=== PATIENT | male | born 1955 | race Caucasian/White ===

== ENCOUNTER → 2016-07-13 | Outpatient (CLI) | payer BC | END | disposition home or self-care (01) | LOC: C.CPL 10:23 | PROVIDERS: ATTEND Otolaryngology | DX: Z01.810 Encounter for preprocedural cardiovascular examination (principal) ==

== ENCOUNTER → 2016-08-05 | Day surgery (SDC) | payer BC ==
[2016-07-20 11:21] VITALS: Ht 180.3 cm; Wt 85.5 kg
--- NOTE | 2016-08-04 08:50 | History and Physical: Surg Cnt ---
History & Physical Date August 04, 2016. Chief Complaint pain on swallowing History of Present Illness The patient is a 61 year old male with complaints of odynophagia, globus, reflux , and pain; referred by Dr. Powers for lesion laryngeal surface of epiglottis Past Medical/Surgical History Medical Problems: (1) Carpal tunnel syndrome Additional History Hepatic Disease: No Endocrine Disorder: No Kidney Disease: No Hypertension: No Heart Disease: No Bleeding Tendencies: No Infectious Diseases: No Allergies Coded Allergies: No Known Allergies (Unverified , NONE, 07/20/16) Home Medications No Active Prescriptions or Reported Meds Physical Examination Skin: warm/dry, no rash Eyes: normal inspection, EOMI, sclerae normal ENT: normal ENT inspection, pharynx normal, + pertinent finding (lesion laryngeal surface of epiglottis) Head: normocephalic, atraumatic Neck: supple, no adenopathy, trachea midline Respiratory/Chest: lungs clear, normal breath sounds, no respiratory distress Cardiovascular: regular rate, rhythm, no edema, no murmur Abdomen / GI: normal bowel sounds, non tender Back: normal inspection Extremities: normal inspection, normal range of motion Neurologic/Psych: no motor/sensory deficits, alert, normal reflexes, oriented x 3 Diagnosis lesion laryngeal surface of epiglottis Plan of Treatment direct laryngoscopy with micro excision
[~2016-08-05] VITALS: Ht 180.3 cm; Wt 85.5 kg
[~2016-08-05] MED LIST: ATROPINE SULFATE 0.1 MG/ML 5ML SYR IV PRN; DEXAMETHASONE SOD INJ 4 MG/ML VIAL ONE; EpHEDrine SULFATE INJ 50 MG/ML AMP IV PRN; FENTANYL CITRATE INJ 50 MCG/1 ML 2 ML VIAL IV PRN; FENTANYL CITRATE INJ 50 MCG/1 ML 2 ML VIAL ONE; FLUMAZENIL 0.1 MG/1 ML 10 ML VIAL IV PRN; HYDROmorphone INJ 2 MG/ML SYR/VIAL IV PRN; HydrALAZINE HCL 20 MG/ML VIAL ONE; LABETALOL HCL IV 5 MG/ML 20ML IV PRN; LACTATED RINGER'S 1000ML 1,000 ML IV SCH; LIDOCAINE HCL 2% 2 ML VIAL (20MG/ML) ONE; MEPERIDINE HCL 25 MG/ML CARP IV PRN; MIDAZOLAM HCL 1 MG/ML 2ML VIAL ONE; NALOXONE HCL 0.4 MG/1 ML VIAL/CARP IV PRN; NURSING VERBAL MED ORDER ONE; ONDANSETRON INJ 2 MG/ML 2 ML VIAL IV PRN; ONDANSETRON INJ 2 MG/ML 2 ML VIAL ONE; OXYCODONE/ACETAMINOPHEN 5-325 TAB PO PRN; PHENYLEPHRINE 100MCG/ML 5ML SYR IV PRN; PROPOFOL IV EMULSION 10 MG/ML 20 ML VIAL IV ONE; ROCURONIUM BROMIDE 10 MG/ML 5 ML VIAL ONE; SODIUM CHLORIDE 0.9% 1000ML 1,000 ML IV SCH; SUCCINYLCHOLINE CHLORIDE 20 MG/ML 10 ML VIAL IV ONE
--- NOTE | 2016-08-05 13:18 | History & Physical Bridge Note ---
H&P Re-Evaluation Bridge Note: I have examined the patient, reviewed the History & Physical and in the interval since the performance of the History & Physical I have noted the following changes of clinical significance: No changes noted
--- NOTE | 2016-08-05 13:22 | Discharge Instructions-SurgCtr ---
Discharge Instructions Date of Service August 05, 2016. Visit Reason for Visit: Cyst Laryngeal Surface Of Epiglotis Discharge Discharge Diagnosis / Problem: same Discharge Goals Goal(s): Diagnostic testing Activity Recommendations Activity Limitations: resume your previous activity Anesthesia . Post Anesthesia Instructions: If you have had General Anesthesia or IV Sedation: * Do not drive today. * Resume driving when surgeon permits. * Do not make important decisions or sign legal documents today. * Call surgeon for: 1. Temperature elevations greater than 101 degrees F. 2. Uncontrollable pain. 3. Excessive bleeding. 4. Persistent nausea and vomiting. 5. Medication intolerance (nausea, vomiting or rash). * For nausea and vomiting use only clear liquids such as: tea, soda, bouillon until nausea subsides, then gradually increase diet as tolerated. * If you have any concerns or questions, call your surgeon's office. If physician is unavailable and it is an emergency, call 911 or go to the nearest emergency room. . Instructions / Follow-Up Instructions / Follow-Up avoid hot liquids, use ice chips to minimize swelling, rest voice x 48 hr Diet Recommendations Home Diet: resume previous diet Diet Texture: Mechanical Soft (ground) Pending Studies Studies pending at discharge: no Medical Emergencies . Who to Call and When: Medical Emergencies: If at any time you feel your situation is an emergency, please call 911 immediately. . Non-Emergent Contact Non-Emergency issues call your: Primary Care Provider . . "Provider Documentation" section prepared by Naila Dennison. . [place] Drug Monitoring Program Search Results: no issues identified
--- NOTE | 2016-08-05 14:33 | Anesthesia Progress Nt - [facility] ---
Anesthesia Post Op Note Date & Time August 05, 2016 at 14:34 Vital Signs Pain Intensity: 0 Vital Signs Past 12 Hours Date Time Temp Pulse Resp B/P Pulse Ox O2 Delivery O2 Flow Rate FiO2 08/05/16 14:23 61 10 100 08/05/16 14:23 62 10 08/05/16 14:20 158/96 08/05/16 14:18 65 6 08/05/16 14:18 64 6 100 08/05/16 14:15 157/103 08/05/16 14:13 68 6 157/108 99 08/05/16 14:13 36.2 76 20 157/108 98 Humidified Oxygen 6 Diffusion Mask 08/05/16 14:13 67 6 08/05/16 12:13 36.6 62 18 127/90 97 Room Air Notes Mental Status: alert / awake / arousable, participated in evaluation Pt Amnestic to Procedure: Yes Nausea / Vomiting: adequately controlled Pain: adequately controlled Airway Patency, RR, SpO2: stable & adequate BP & HR: stable & adequate Hydration State: stable & adequate Anesthetic Complications: no major complications apparent
[2016-08-05 15:09] VITALS: TEMP 36.8
[2016-08-05 15:24] VITALS: BP 135/88; PULSE 58; O2SAT 97
--- NOTE | 2016-08-05 16:40 | OPERATIVE REPORT ---
DATE OF OPERATION: 08/05/2016 PREOPERATIVE DIAGNOSIS: Cyst laryngeal surface of epiglottis. POSTOPERATIVE DIAGNOSES: Same plus a second cyst on the lingual surface of epiglottis. PROCEDURE: Direct laryngoscopy with suspension and microlaryngoscopy and excision of 2 cysts. SURGEON: Dr. Dennison. ANESTHESIA: General endotracheal. COMPLICATIONS: None. BLOOD LOSS: 10 mL COMPLICATIONS: A small laceration under the tongue from the laryngoscope HISTORY: A 61-year-old male who presented with globus sensation was referred by Dr. Powers who did upper GI endoscopy and saw a cyst on the laryngeal surface of the epiglottis. This was visualized by me and the patient requested excisional biopsy because a past history of smoking. DESCRIPTION OF PROCEDURE: The patient brought to the operating room and placed in supine position. General endotracheal anesthesia was induced, prepped, draped in usual sterile manner. The Dedo laryngoscope was used, the tip of the epiglottis was sharp and there was a cyst at the laryngeal surface, but then there was also another cyst on the lingual surface of epiglottis. The vallecula was otherwise free of lesions as was the piriform sinus areas. The endolarynx was inspected and noted to have mild edema but otherwise normal. Suspension microlaryngoscopy was performed exposing the cyst of the epiglottis on the laryngeal surface. This was excised using the upbiting cup forceps and various straight and upbiting scissors. Yellowish purulent material was expressed from the cyst during the excision. Hemostasis was controlled using topical cottonoids with epinephrine. Attention was turned to the lingual surface of the epiglottis where another cyst was noted; therefore, the cyst was excised using the cup forceps and upbiting scissors and sent to pathology separately from the first cyst. At the end of the procedure, it was noted that with a suspension microlaryngoscopy the tongue was pinched and had a small less than 1 cm laceration at the undersurface of the tongue. The patient tolerated the procedure well and was taken to recovery area in satisfactory condition. I attest to the content of the Intraoperative Record and any orders documented therein. Any exceptio ns are noted below.
== END | disposition home or self-care (01) ==
LOC: X.SURG 12:00
PROVIDERS: ATTEND Otolaryngology
DX: J38.7 Other diseases of larynx (principal)

== ENCOUNTER 2024-03-10 11:09 | Observation (INO) ==
--- NOTE | 2024-03-10 11:37 | Emergency Department Note ---
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 It comes and goes with exertion. Relieved by rest. Initially started 2 days ago when he was walking up steep incline. He had it yesterday with just a subtle incline and now today with just moving around. He describes it as a weakness feeling in his chest. It was initially on the right side and now is on the left side. He notes it is a discomfort but has difficulty describing it other than the weakness. No dysuria, urgency, or frequency. No other exacerbating or remitting factors. Per he is supposed to be on a NOAC but they stopped today due to his low platelets. He did get a transfusion several days ago. He also note new swelling of the bilateral lower extremities which are worse than usual. ADDITIONAL HISTORY OBTAINED: Per HPI Chronic Medical/Social Conditions Affecting Care: Per HPI PAST MEDICAL HISTORY:See Below PAST SURGICAL HISTORY:See Below FAMILY HISTORY:See Below SOCIAL HISTORY:See Below HOME MEDICATIONS:See Below ALLERGIES:See Below VITALS:See Below PHYSICAL EXAMINATION: GENERAL: Sitting up in bed, alert, well appearing, well nourished, no distress, non-toxic EYE EXAM: normal conjunctiva. OROPHARYNX: no exudate, no erythema, lips, buccal mucosa, and tongue normal and mucous membranes are moist NECK: supple, no nuchal rigidity, no adenopathy, non-tender LUNGS: Clear to auscultation. Normal chest wall mechanics HEART: no murmurs, S1 normal and S2 normal ABDOMEN: abdomen soft, non-tender, normo-active bowel sounds, no masses, no rebound or guarding. BACK: Back is symmetrical on inspection and there is no deformity, no midline tenderness, no CVA tenderness. SKIN: no rashes and no bruising UPPER EXTREMITIES: upper extremities are grossly normal. LOWER EXTREMITIES: No pitting edema. NEURO EXAM: Normal sensorium, cranial nerves II-XII grossly intact, normal speech, no gross weakness of arms, no gross weakness of legs. MEDICAL DECISION MAKING: Patient is a 68-year-old male who presents ER for the above-stated complaint. IV was established and blood work was obtained. Labs show a leukopenia at 1.8, anemia 8.5 and a thrombocytopenia at 40 which is actually improved from previous. Upon arrival he was given aspirin due to the chest pain. BMP with a slightly elevated chloride at 109. LFTs and bilirubin is unremarkable. Lipase was normal. Troponin was negative. EKG nondiagnostic. Chest x-ray was clean. No chest pain upon presentation. Patient was updated at bedside. He was discussed with hospitalist admitted for further workup. CT of the chest was negative for any PE. Consults/Care Managements Discussions: Per [facility] Triage Nursing notes reviewed. Limited review of prior medical records performed Vital Signs: reviewed and remarkable for no significant abnormalities Differential diagnosis: Cardiac ischemia, aortic dissection, pulmonary embolism, pneumothorax, pneumonia, pericarditis, myocarditis, esophageal rupture, GERD, cholecystitis, pancreatitis, musculoskeletal, as well as other pathologies. ER treatment provided: See below Diagnostics interpreted by me include EKG and cardiac monitoring as listed below: -Cardiac Monitoring: An order was placed for continuous cardiac monitoring. The monitor shows a rate of 70 with sinus rhythm. -ECG: Sinus rhythm rate of 62 Normal axis No PVCs QTc 420 -Laboratory studies:Interpreted by me as stated above in MDM and shown below. Imaging studies: Xrays: As interpreted by me: Portable AP upright 1 view of the chest shows no focal infiltrate CTs show: CTA of the chest showed no PEs Procedures:none Critical Care: None Past Med/Surg History Problem List (Updated 03/10/24 @ 17:06 by Musa Davis DO) Chest pain (Acute) Pancytopenia (Acute) Lymphoma (Acute) Chest pain Fracture of tooth enamel and dentin Encounter for pre-operative examination History of laryngoscopy DIRECT LARYNGOSCOPY, LARYNGEAL CYSTECTOMY=08/05/16= GRADE VIEW 3, HUSSEIN 2, ETT 6.5 AT [facility] History of knee surgery RIGHT Bimalleolar ankle fracture (Acute) Medical History History of COVID-19 06/2021, home test, not hosp; headaches, congestion>resolved. Fracture of right ankle hx-due to fall off roof Osteoarthritis Surgical History Hx of laparoscopy S/P tendon repair quadriceps tendon LT. H/O colonoscopy Hx of arthroscopy of right knee History of tonsillectomy 1990 History of vasectomy History of carpal tunnel release B/L History of ankle surgery RIGHT 2015 Social History (Updated 03/24/21 @ 16:16 by Ingrid Pineda RN) Smoking Status: Never smoker Tobacco Type: Cigarettes and Smokeless Tobacco (Dip or Chew) packs per day: 0.25; Second Hand Exposure: No; Do You Dip or Chew Tobacco: Yes (hx-quit 5 years ago); Hx Alcohol Use: No Hx Substance Use: No Preferred Language: Latvian Communication Ability: Effective Retail Customer Service Specialist Required: No Beliefs That Will Affect Care: None marital status: Current Living Situation: Spouse current occupational status: retired How many Children do You have: 3 Feels Safe at Home: Yes Diet: regular during the past year weight has: remained stable Assistive Devices: Glasses Allergies Allergies Allergy/AdvReac Type Severity Reaction Status Date / Time animal dander Allergy Verified 03/10/24 14:39 house dust mite Allergy Verified 03/10/24 14:39 No Known Drug Allergies Allergy Verified 03/08/24 09:30 Home Meds Home Medications Medication Instructions Recorded Confirmed acyclovir 400 mg tablet 400 mg PO BID 03/08/24 03/10/24 cholecalciferol (vitamin D3) 125 125 mcg PO DAILY 03/08/24 03/10/24 mcg (5,000 unit) tablet (Vitamin D3) levofloxacin 500 mg tablet 500 mg PO DAILY 03/08/24 03/10/24 multivitamin 1 tab PO DAILY 03/08/24 03/10/24 apixaban 2.5 mg tablet (Eliquis) 0 mg PO BID 03/10/24 03/10/24 docusate sodium 100 mg capsule 200 mg PO HS 03/10/24 03/10/24 (Colace) gabapentin 300 mg tablet,extended 300 mg PO HS 03/10/24 03/10/24 release 24 hr sennosides 8.6 mg tablet (Senokot) 8.6 mg PO QAM 03/10/24 03/10/24 Results & Data (ED) Vital Signs Vital Signs - 24 hr 03/10/24 11:17 03/10/24 11:31 03/10/24 11:52 Temperature 36.9 C Temperature Source Temporal Artery Scan Pulse Rate 67 63 Pulse Rate [Apical] Pulse Rate from SpO2 Sensor Respiratory Rate 18 Respiratory Effort / Characteristics Non-Labored Spontaneous Respiratory Depth Normal Blood Pressure 118/69 Blood Pressure [Right Arm] Blood Pressure Mean 85 Blood Pressure Mean [Right Arm] Blood Pressure Position Sitting Pulse Oximetry 97 96 Oxygen Delivery Method Room Air Room Air Sepsis Recent Fever Within 48 Hours No Sepsis New/Unexplained Change in Mental Status N/A Sepsis Action Taken by Nursing No Action Required 03/10/24 11:52 03/10/24 11:52 03/10/24 12:17 Temperature Temperature Source Pulse Rate 65 Pulse Rate [Apical] 70 57 L Pulse Rate from SpO2 Sensor Respiratory Rate 15 11 L 8 L Respiratory Effort / Characteristics Respiratory Depth Blood Pressure Blood Pressure [Right Arm] 115/72 88/58 L Blood Pressure Mean Blood Pressure Mean [Right Arm] 86 68 Blood Pressure Position Pulse Oximetry 97 96 98 Oxygen Delivery Method Room Air Room Air Room Air Sepsis Recent Fever Within 48 Hours Sepsis New/Unexplained Change in Mental Status Sepsis Action Taken by Nursing 03/10/24 12:39 03/10/24 13:00 03/10/24 14:06 Temperature Temperature Source Pulse Rate 59 L Pulse Rate [Apical] 61 Pulse Rate from SpO2 Sensor 59 L Respiratory Rate 17 26 H Respiratory Effort / Characteristics Respiratory Depth Blood Pressure 97/64 L Blood Pressure [Right Arm] 126/68 Blood Pressure Mean 70 Blood Pressure Mean [Right Arm] 87 Blood Pressure Position Pulse Oximetry 98 98 Oxygen Delivery Method Room Air Sepsis Recent Fever Within 48 Hours Sepsis New/Unexplained Change in Mental Status Sepsis Action Taken by Nursing 03/10/24 14:09 03/10/24 14:30 03/10/24 14:30 Temperature Temperature Source Pulse Rate 59 L Pulse Rate [Apical] Pulse Rate from SpO2 Sensor 60 Respiratory Rate 26 H Respiratory Effort / Characteristics Respiratory Depth Blood Pressure 126/68 115/69 115/69 Blood Pressure [Right Arm] Blood Pressure Mean 87 77 77 Blood Pressure Mean [Right Arm] Blood Pressure Position Pulse Oximetry 98 Oxygen Delivery Method Sepsis Recent Fever Within 48 Hours Sepsis New/Unexplained Change in Mental Status Sepsis Action Taken by Nursing 03/10/24 14:30 03/10/24 15:06 12/14/24 15:15 Temperature Temperature Source Pulse Rate 57 L 58 L 63 Pulse Rate [Apical] Pulse Rate from SpO2 Sensor 57 L 59 L 60 Respiratory Rate 14 19 15 Respiratory Effort / Characteristics Respiratory Depth Blood Pressure Blood Pressure [Right Arm] Blood Pressure Mean Blood Pressure Mean [Right Arm] Blood Pressure Position Pulse Oximetry 99 98 97 Oxygen Delivery Method Sepsis Recent Fever Within 48 Hours Sepsis New/Unexplained Change in Mental Status Sepsis Action Taken by Nursing 03/10/24 15:33 03/10/24 15:40 Temperature Temperature Source Pulse Rate 58 L 63 Pulse Rate [Apical] Pulse Rate from SpO2 Sensor 59 L Respiratory Rate 21 Respiratory Effort / Characteristics Respiratory Depth Blood Pressure 107/73 Blood Pressure [Right Arm] Blood Pressure Mean 84 Blood Pressure Mean [Right Arm] Blood Pressure Position Pulse Oximetry 98 Oxygen Delivery Method Sepsis Recent Fever Within 48 Hours Sepsis New/Unexplained Change in Mental Status Sepsis Action Taken by Nursing Laboratory Data 03/10/24 11:46 03/10/24 11:46 Lab Results 03/10/24 Range/Units 11:46 WBC 1.89 L (4.8-10.8) K/ul RBC 2.41 L (4.70-6.10) M/uL Hgb 8.5 L (14.0-18.0) g/dl Hct 24.1 L (42.0-52.0) % MCV 100.0 (80.0-100.0) fL MCH 35.3 H (25.0-34.0) pg MCHC 35.3 (32.0-36.0) g/dL RDW Std Deviation 60.2 H (36.4-46.3) fL RDW Coeff of Roula 16.2 H (11.5-14.5) % Plt Count 40 L (130-400) K/uL MPV 10.8 (9.4-12.4) fL Immature Gran % (Auto) 1.6 % Neut % (Auto) 53.9 % Lymph % (Auto) 14.3 % Stewart % (Auto) 25.4 % Eos % (Auto) 3.7 % Baso % (Auto) 1.1 % Neut # (Auto) 1.02 L (1.40-6.50) K/uL Lymph # (Auto) 0.27 L (1.20-3.40) K/uL Stewart # (Auto) 0.48 (0.11-0.59) K/uL Eos # (Auto) 0.07 (0.00-0.50) K/uL Baso # (Auto) 0.02 (0.00-0.20) K/uL Immature Gran # (Auto) 0.03 (0.01-0.20) K/uL Hyposegmented Neuts 1+ Polychromasia 1+ Tear Drop Cells 1+ Ovalocytes 1+ Sodium 138 (136-145) mmol/L Potassium 3.9 (3.5-5.1) mmol/L Chloride 109 H (98-107) mmol/L Carbon Dioxide 26 (21-32) mmol/L Anion Gap 3 (3-11) BUN 13 (6-23) mg/dl Creatinine 0.61 (0.6-1.4) mg/dl Est Cr Clr Drug Dosing 118.0 ml/min eGFR 103.98 BUN/Creatinine Ratio 21.3 H (10-20) Glucose 105 H (70-99(Fasting)) mg/dl Calcium 8.6 (8.6-10.3) mg/dl Total Bilirubin 0.6 (0.2-1.0) mg/dl AST 10 L (13-39) U/L ALT 8 (7-52) U/L Alkaline Phosphatase 60 (34-104) U/L Troponin I High Sens 8.9 (0-20) pg/ml Total Protein 5.2 L (6.0-8.3) gm/dl Albumin 3.5 (3.4-5.0) gm/dl Globulin 1.7 L (2.5-4.0) gm/dl Albumin/Globulin Ratio 2.1 H (0.9-2) Lipase 5 L (11-82) U/L Administered Medications Discontinued Medications Aspirin (Aspirin Chew 324 Mg) 324 mg PO NOW STA Stop: 03/10/24 11:42 Last Admin: 03/10/24 11:50 Dose: 324 mg Documented By: DONTRELL Sodium Chloride (Nss) 1,000 mls @ 999 mls/hr IV .Q1H1M ONE Stop: 03/10/24 13:45 Last Infusion: 03/10/24 15:55 Dose: Infused Documented By: Admin: 03/10/24 14:09 Dose: 999 mls/hr Documented By: AVM Ioversol (Optiray 320 125ml) 65 ml IV ONCE ONE Stop: 03/10/24 13:46 Last Admin: 03/10/24 13:45 Dose: 65 ml Documented By: JOSE MANUEL Nitroglycerin (Nitroglycerin Sl 0.4 Mg/Tab Tab) 0.4 mg SL NOW STA Stop: 03/10/24 11:42 Last Admin: 03/10/24 11:50 Dose: 0.4 mg Documented By: DONTRELL Imaging Data Radiologist's Impression: Chest X-Ray 03/10/24 11:28 XR chest 1V portable CLINICAL HISTORY: Chest pain, nonspecific COMPARISON STUDY: None. FINDINGS: Right internal jugular [id number] is in place. Lung volumes are normal. Lungs are clear. There is no pneumothorax or pleural effusion. Cardiac size is normal. Mediastinal contours are normal. There is no evidence for pulmonary edema. IMPRESSION: No acute cardiopulmonary findings. ACT 112: Negative or not required by law. Electronically signed by: Triston Dao M.D. 03/10/2024 1:21 PM Chest CTA 03/10/24 12:45 EXAM: CT Angiography Chest With Intravenous Contrast INDICATION: Chest pain on exertion. B-cell lymphoma. TECHNIQUE: Axial computed tomographic angiography images of the chest with intravenous contrast. Sagittal and coronal reformatted images were created and reviewed. This CT exam was performed using one or more of the following dose reduction techniques: automated exposure control, adjustment of the mA and/or kV according to patient size, and/or use of iterative reconstruction technique. MIP reconstructed images were created and reviewed. CONTRAST: 65ml of Optiray 320 was administered intravenously. COMPARISON: Limited comparison to upper abdominal CT performed during lymph node biopsy. FINDINGS: Pulmonary arteries: No abnormality noted. No pulmonary embolism. Aorta: No acute change noted. No thoracic aortic aneurysm or dissection. Lungs and pleural spaces: Coarse interstitial markings likely scarring. There is a 5 mm oval noncalcified pleural-based nodule in the left lower lobe at the level of the eighth rib. There are 2 and 3 mm noncalcified right middle lobe pulmonary nodules. No bronchiectasis or honeycombing. No pleural effusion or pneumothorax. Heart: Cardiomegaly. No pericardial effusion. No evidence of RV dysfunction. Bones/joints: Degenerative changes noted throughout the spine. No acute osseous abnormality seen. Soft tissues: No abnormality noted. Lymph nodes: No abnormality noted. No enlarged lymph nodes. Spleen: Visualized portion of the mass in the spleen appears smaller. IMPRESSION: 1. No pulmonary embolus noted. 2. Nonspecific right middle lobe pulmonary nodules. Fleischner Society Guidelines (MacMahon, et al. Radiology 2017; 284(1):228-43) suggest that no follow-up is necessary for patients with a low or high risk of malignancy. Pleural-based nodule left lower lobe requires no further assessment. ACT 112: Negative or not required by law. Electronically signed by Luanne Shetty 03-10-2024 2:12 PM Discharge Plan Visit Data Chief Complaint: Cardiac Assessment Stated Complaint: HAVING CHEMO, EDEMA IN ANKLES, CHEST PAINS ED Provider: Musa Davis Discharge Problem: Chest pain, Pancytopenia, Lymphoma Forms Stand Alone Forms: [facility] Prescriptions Prescriptions: No Action sennosides [Senokot] 8.6 mg Tablet 8.6 mg PO QAM docusate sodium [Colace] 100 mg Capsule 200 mg PO HS gabapentin 300 mg Tablet Extended Release 24 Hr 300 mg PO HS Eliquis 2.5 mg tablet 0 mg PO BID Rx Instructions: 03/07/24 - Pt's platelet count down to 9, was told to hold medication until it is up to 50 multivitamin Tablet 1 tab PO DAILY acyclovir 400 mg Tablet 400 mg PO BID levofloxacin 500 mg Tablet 500 mg PO DAILY cholecalciferol (vitamin D3) [Vitamin D3] 125 mcg (5,000 unit) Tablet 125 mcg PO DAILY Referrals Referrals: Shelby Burgess DO [Primary Care Provider] - Discharge Problem: Chest pain Qualifiers: Chest pain type: unspecified Qualified Code(s): R07.9 - Chest pain, unspecified Lymphoma Qualifiers: Lymphoma type: unspecified type
[2024-03-10] MEDS: ASPIRIN CHEW 324 MG PO STA (11:50)
[2024-03-10] MEDS: NITROGLYCERIN SL 0.4 MG/TAB TAB SL STA (11:50)
[2024-03-10 12:18] LABS: Albumin Globulin Ratio 2.1 (0.9-2); Albumin Level 3.5 gm/dl (3.4-5.0); BUN Creatinine Ratio 21.3 (10-20); Bilirubin,Total 0.6 mg/dl (0.2-1.0); Calcium 8.6 mg/dl (8.6-10.3); Globulin 1.7 gm/dl (2.5-4.0); Potassium 3.9 mmol/L (3.5-5.1); Total Protein 5.2 gm/dl (6.0-8.3)
[2024-03-10 12:24] LABS: Troponin I High Sensitivity 8.9 pg/ml (0-20)
[2024-03-10 13:03] LABS: Hematocrit (blood only) 24.1 % (42.0-52.0); Hemoglobin 8.5 g/dl (14.0-18.0); Mean Corpuscular Hemoglobin 35.3 pg (25.0-34.0); Mean Corpuscular Hgb Conc 35.3 g/dL (32.0-36.0); Mean Platelet Volume 10.8 fL (9.4-12.4); Platelet Count 40 K/uL (130-400); RDW Coefficient of Variation 16.2 % (11.5-14.5); RDW Standard Deviation 60.2 fL (36.4-46.3); Red Blood Count 2.41 M/uL (4.70-6.10); White Blood Count 1.89 K/ul (4.8-10.8)
[2024-03-10 13:07] LABS: Basophils # (auto) 0.02 K/uL (0.00-0.20); Basophils % (auto) 1.1 %; Eosinophils # (auto) 0.07 K/uL (0.00-0.50); Eosinophils % (auto) 3.7 %; Immature Granulocytes # (auto) 0.03 K/uL (0.01-0.20); Immature Granulocytes % (auto) 1.6 %; Lymphocytes # (auto) 0.27 K/uL (1.20-3.40); Lymphocytes % (auto) 14.3 %; Monocytes # (auto) 0.48 K/uL (0.11-0.59); Monocytes % (auto) 25.4 %; Neutrophils # (auto) 1.02 K/uL (1.40-6.50); Neutrophils % (auto) 53.9 %; Ovalocytes 1+; Polychromasia 1+; Tear Drop Cells 1+
--- NOTE | 2024-03-10 13:22 | XRay Report ---
XR chest 1V portable CLINICAL HISTORY: Chest pain, nonspecific COMPARISON STUDY: None. FINDINGS: Right internal jugular Esrsya-t-Bswe is in place. Lung volumes are normal. Lungs are clear. There is no pneumothorax or pleural effusion. Cardiac size is normal. Mediastinal contours are bailey l. There is no evidence for pulmonary edema. IMPRESSION: No acute cardiopulmonary findings. ACT 112: Negative or not required by law. Electronically signed by: Triston Dao M.D. 03/10/2024 1:21 PM
[2024-03-10] MEDS: OPTIRAY 320 125ml IV ONE (13:45)
[2024-03-10] MEDS: SODIUM CHLORIDE 0.9% 1,000 ML IV ONE (14:09)
--- NOTE | 2024-03-10 14:13 | CT Scan Report ---
EXAM: CT Angiography Chest With Intravenous Contrast INDICATION: Chest pain on exertion. B-cell lymphoma. TECHNIQUE: Axial computed tomographic angiography images of the chest with intravenous contrast. Sagittal and coronal reformatted images were created and reviewed. This CT exam was performed using one or more of the following dose reduction techniques: automated exposure control, adjustment of the mA and/or kV according to patient size, and/or use of iterative reconstruction technique. MIP reconstructed images were created and reviewed. CONTRAST: 65ml of Optiray 320 was administered intravenously. COMPARISON: Limited comparison to upper abdominal CT performed during lymph node biopsy. FINDINGS: Pulmonary arteries: No abnormality noted. No pulmonary embolism. Aorta: No acute change noted. No thoracic aortic aneurysm or dissection. Lungs and pleural spaces: Coarse interstitial markings likely scarring. There is a 5 mm oval noncalcified pleural-based nodule in the left lower lobe at the level of the eighth rib. There are 2 and 3 mm noncalcified right middle lobe pulmonary nodules. No bronchiectasis or honeycombing. No pleural effusion or pneumothorax. Heart: Cardiomegaly. No pericardial effusion. No evidence of RV dysfunction. Bones/joints: Degenerative changes noted throughout the spine. No acute osseous abnormality seen. Soft tissues: No abnormality noted. Lymph nodes: No abnormality noted. No enlarged lymph nodes. Spleen: Visualized portion of the mass in the spleen appears smaller. IMPRESSION: 1. No pulmonary embolus noted. 2. Nonspecific right middle lobe pulmonary nodules. Fleischner Society Guidelines (MacMahon, et al. Radiology 2017; 284(1):228-43) suggest that no follow-up is necessary for patients with a low or high risk of malignancy. Pleural-based nodule left lower lobe requires no further assessment. ACT 112: Negative or not required by law. Electronically signed by Luanne Shetty 03-10-2024 2:12 PM
[2024-03-10] MEDS ORDERED: ONDANSETRON INJ 2 MG/ML 2 ML VIAL IV PRN (15:58)
[2024-03-10] MEDS ORDERED: ACETAMINOPHEN 325 MG TAB PO PRN (15:58)
[2024-03-10] MEDS ORDERED: POLYETHYLENE (MIRALAX) 17 GM PACK PO PRN (15:58)
--- NOTE | 2024-03-10 16:22 | History & Physical Report ---
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 Edwards local oncologist, on apixaban as part of clinical trial at [facility] which was stopped recently for thrombocytopenia requiring platelet transfusion 2 days ago presents with left-sided chest pain yesterday #Chest pain Admit to telemetry EKG with no ischemic changes, initial troponin negative CTA shows no evidence of PE Serial troponin every 6 hours x 2 Check 2D echo Check nuclear medicine stress test Patient received aspirin 324 mg in ED Hold off on aspirin due to thrombocytopenia requiring platelet transfusion Check lipid panel in a.m. Check A1c in a.m. #Diffuse large cell type B lymphoma #Pancytopenia #Right pulmonary nodules Patient under the care of Dr. Edwards oncologist locally He has finished 6 cycles of chemotherapy at [facility] in [facility] on February 29, 2024 His oncologist at [facility] is Dr. Gerald Weber Patient is in a clinical trial and he is not aware if he is getting placebo or treatment via pill He was on apixaban as part of the clinical trial (not for PE or A-fib) which had to be stopped by his oncology team due to thrombocytopenia requiring platelet transfusion 2 days ago Neutropenic precautions Monitor CBC daily Continue acyclovir and Levaquin for prophylaxis CTA showed right middle lobe pulmonary nodules 2 mm and 3 mm in size: Patient advised to follow-up with oncology as outpatient regarding this CODE STATUS: Discussed with patient, full code DVT prophylaxis: Bilateral SCDs, patient is ambulatory. 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 Edwards local oncologist, on apixaban as part of clinical trial at [facility] which was stopped recently for thrombocytopenia requiring platelet transfusion 2 days ago presents with left-sided chest pain yesterday Patient states she started with right-sided chest pain 3 days ago while he was trying to climb up a hill. It resolved on rest. No associated shortness of breath. Yesterday patient was out in nature and experienced left-sided chest pain, no radiation, no shortness of breath, no nausea and resolved on its own. Patient's was concerned and hence brought him to the ED today. Patient states he has not had any chest pain today. Denies any fever, chills, cough, shortness of breath, nausea, vomiting, diarrhea, abdominal pain. He tends to get constipated and takes senna and Colace for it. He has intermittent dizziness since he has started chemotherapy. Patient states as part of his clinical trial through [facility], he is also getting a pill and he is not sure if its treatment or placebo In ED, patient had chest x-ray which was negative, CTA which was negative for PE but showed 2 small right middle lobe pulmonary nodules. He had an EKG done which showed normal sinus rhythm at 62 bpm with QTc of 420 and no change from previous EKG from March 2018. Patient was given sublingual nitro even though he did not have any chest pain in ED. He was also given 1 L of normal saline and aspirin 324 mg in the ED. Hospitalist service was called for admission Social history: Patient lives with his . He is independent of ADLs. He drives. Denies tobacco use. He used to drink 2-3 beers a day and has had no alcohol since October 2023 since his diagnosis of lymphoma. He is retired Family history: Patient states his mother at the age of 99 from old age. She had a murmur. Patient states that his father at the age of 94 from congestive heart failure Allergies Allergy/AdvReac Type Severity Reaction Status Date / Time animal dander Allergy Verified 03/10/24 14:39 house dust mite Allergy Verified 03/10/24 14:39 No Known Drug Allergies Allergy Verified 03/08/24 09:30 Home Medications Medication Instructions Recorded Confirmed Type acyclovir 400 mg tablet 400 mg PO BID 03/08/24 03/10/24 History cholecalciferol (vitamin D3) 125 125 mcg PO DAILY 03/08/24 03/10/24 History mcg (5,000 unit) tablet (Vitamin D3) levofloxacin 500 mg tablet 500 mg PO DAILY 03/08/24 03/10/24 History multivitamin 1 tab PO DAILY 03/08/24 03/10/24 History apixaban 2.5 mg tablet (Eliquis) 0 mg PO BID 03/10/24 03/10/24 History docusate sodium 100 mg capsule 200 mg PO HS 03/10/24 03/10/24 History (Colace) gabapentin 300 mg tablet,extended 300 mg PO HS 03/10/24 03/10/24 History release 24 hr sennosides 8.6 mg tablet (Senokot) 8.6 mg PO QAM 03/10/24 03/10/24 History Past Med/Surg History Problem List (Updated 03/10/24 @ 16:15 by Amaury Brooks MD) Pancytopenia Lymphoma Chest pain Fracture of tooth enamel and dentin Encounter for pre-operative examination History of laryngoscopy DIRECT LARYNGOSCOPY, LARYNGEAL CYSTECTOMY=08/05/16= GRADE VIEW 3, HUSSEIN 2, ETT 6.5 AT [facility] History of knee surgery RIGHT Bimalleolar ankle fracture (Acute) Medical History History of COVID-19 06/2021, home test, not hosp; headaches, congestion>resolved. Fracture of right ankle hx-due to fall off roof Osteoarthritis Surgical History Hx of laparoscopy S/P tendon repair quadriceps tendon LT. H/O colonoscopy Hx of arthroscopy of right knee History of tonsillectomy 1990 History of vasectomy History of carpal tunnel release B/L History of ankle surgery RIGHT 2014 Social History (Updated 03/24/21 @ 16:16 by Ingrid Pineda RN) Smoking Status: Never smoker Tobacco Type: Cigarettes and Smokeless Tobacco (Dip or Chew) packs per day: 0.25; Second Hand Exposure: No; Do You Dip or Chew Tobacco: Yes (hx-quit 5 years ago); Hx Alcohol Use: No Hx Substance Use: No Preferred Language: Afghan Communication Ability: Effective Floral Designer Required: No Beliefs That Will Affect Care: None marital status: Current Living Situation: Spouse current occupational status: retired How many Children do You have: 3 Feels Safe at Home: Yes Diet: regular during the past year weight has: remained stable Assistive Devices: Glasses Review of Systems Review of Systems: All 12 systems have been reviewed and are negative or listed in HPI Physical Exam Physical Exam: General: No acute distress Psych: Awake and alert, oriented to place person and time HEENT: Anicteric sclera, moist oral mucosa CVS: Regular rate and rhythm, right-sided Chemo-Port noted Lungs: Bilateral air entry, no wheezing noted Abdomen: Soft, nontender, no rebound, no guarding Ext: Trace lower extremity edema, no calf tenderness Neuro: No focal motor deficits noted, cranial nerves II to XII are grossly intact Results & Data Results & Data Vital Signs (Past 12 Hours) Vital Signs Temp Pulse Pulse Resp BP BP Pulse Ox 03/10/24 15:40 63 03/10/24 15:33 58 L 21 107/73 98 03/10/24 15:15 63 15 97 03/10/24 15:06 58 L 19 98 03/10/24 14:30 57 L 14 99 03/10/24 14:30 115/69 03/10/24 14:30 115/69 03/10/24 14:09 59 L 26 H 126/68 98 03/10/24 14:06 61 26 H 126/68 98 03/10/24 13:00 97/64 L 03/10/24 12:39 59 L 17 98 03/10/24 12:17 57 L 8 L 88/58 L 98 03/10/24 11:52 65 11 L 96 03/10/24 11:52 70 15 115/72 97 03/10/24 11:52 96 03/10/24 11:31 63 03/10/24 11:17 36.9 C 67 18 118/69 97 O2 Del Method 03/10/24 15:40 03/10/24 15:33 03/10/24 15:15 03/10/24 15:06 03/10/24 14:30 03/10/24 14:30 03/10/24 14:30 03/10/24 14:09 03/10/24 14:06 Room Air 03/10/24 13:00 03/10/24 12:39 03/10/24 12:17 Room Air 03/10/24 11:52 Room Air 03/10/24 11:52 Room Air 03/10/24 11:52 Room Air 03/10/24 11:31 03/10/24 11:17 Room Air Laboratory Results Laboratory Results - last 24 hr 03/10/24 11:46 WBC 1.89 L RBC 2.41 L Hgb 8.5 L Hct 24.1 L MCV 100.0 MCH 35.3 H MCHC 35.3 RDW Std Deviation 60.2 H RDW Coeff of Roula 16.2 H Plt Count 40 L MPV 10.8 Immature Gran % (Auto) 1.6 Neut % (Auto) 53.9 Lymph % (Auto) 14.3 Butler % (Auto) 25.4 Eos % (Auto) 3.7 Baso % (Auto) 1.1 Neut # (Auto) 1.02 L Lymph # (Auto) 0.27 L Butler # (Auto) 0.48 Eos # (Auto) 0.07 Baso # (Auto) 0.02 Immature Gran # (Auto) 0.03 Hyposegmented Neuts 1+ Polychromasia 1+ Tear Drop Cells 1+ Ovalocytes 1+ Sodium 138 Potassium 3.9 Chloride 109 H Carbon Dioxide 26 Anion Gap 3 BUN 13 Creatinine 0.61 Est Cr Clr Drug Dosing 118.0 eGFR 103.98 BUN/Creatinine Ratio 21.3 H Glucose 105 H Calcium 8.6 Total Bilirubin 0.6 AST 10 L ALT 8 Alkaline Phosphatase 60 Troponin I High Sens 8.9 Total Protein 5.2 L Albumin 3.5 Globulin 1.7 L Albumin/Globulin Ratio 2.1 H Lipase 5 L Diagnostic Findings Chest X-Ray 03/10/24 11:28 XR chest 1V portable CLINICAL HISTORY: Chest pain, nonspecific COMPARISON STUDY: None. FINDINGS: Right internal jugular [id number] is in place. Lung volumes are normal. Lungs are clear. There is no pneumothorax or pleural effusion. Cardiac size is normal. Mediastinal contours are normal. There is no evidence for pulmonary edema. IMPRESSION: No acute cardiopulmonary findings. ACT 112: Negative or not required by law. Electronically signed by: Triston Dao M.D. 03/10/2024 1:21 PM Chest CTA 03/10/24 12:45 EXAM: CT Angiography Chest With Intravenous Contrast INDICATION: Chest pain on exertion. B-cell lymphoma. TECHNIQUE: Axial computed tomographic angiography images of the chest with intravenous contrast. Sagittal and coronal reformatted images were created and reviewed. This CT exam was performed using one or more of the following dose reduction techniques: automated exposure control, adjustment of the mA and/or kV according to patient size, and/or use of iterative reconstruction technique. MIP reconstructed images were created and reviewed. CONTRAST: 65ml of Optiray 320 was administered intravenously. COMPARISON: Limited comparison to upper abdominal CT performed during lymph node biopsy. FINDINGS: Pulmonary arteries: No abnormality noted. No pulmonary embolism. Aorta: No acute change noted. No thoracic aortic aneurysm or dissection. Lungs and pleural spaces: Coarse interstitial markings likely scarring. There is a 5 mm oval noncalcified pleural-based nodule in the left lower lobe at the level of the eighth rib. There are 2 and 3 mm noncalcified right middle lobe pulmonary nodules. No bronchiectasis or honeycombing. No pleural effusion or pneumothorax. Heart: Cardiomegaly. No pericardial effusion. No evidence of RV dysfunction. Bones/joints: Degenerative changes noted throughout the spine. No acute osseous abnormality seen. Soft tissues: No abnormality noted. Lymph nodes: No abnormality noted. No enlarged lymph nodes. Spleen: Visualized portion of the mass in the spleen appears smaller. IMPRESSION: 1. No pulmonary embolus noted. 2. Nonspecific right middle lobe pulmonary nodules. Fleischner Society Guidelines (MacMahon, et al. Radiology 2017; 284(1):228-43) suggest that no follow-up is necessary for patients with a low or high risk of malignancy. Pleural-based nodule left lower lobe requires no further assessment. ACT 112: Negative or not required by law. Electronically signed by Luanne Shetty 03-10-2024 2:12 PM ECG Additional Comments: Reviewed: Normal sinus rhythm at 62 bpm, QTc is 420, no change from EKG from March 2018 PG Care Time/CCT Total # of Minutes Spent Total Time Spent with Patient: Total time spent is greater than 50% in coordination of care (as documented) at patient's floor/unit and/or counseling patient: Coding Level of Care Code 85256 INT INP/OBS CARE 3/75MIN Diagnoses Chest pain R07.9 Lymphoma C85.90 Pancytopenia D61.818
[2024-03-10] MEDS ORDERED: SENNA 8.6 MG TAB PO SCH (21:00)
[2024-03-10] MEDS: DOCUSATE SODIUM 100 MG CAP PO SCH (21:16)
[2024-03-10] MEDS: ACYCLOVIR 400 MG TAB PO SCH (21:16)
[2024-03-10] MEDS: GABAPENTIN 300 MG CAP PO SCH (21:17)
[2024-03-11 05:27] LABS: Albumin Globulin Ratio 1.9 (0.9-2); BUN Creatinine Ratio 20.3 (10-20); Bilirubin,Total 0.4 mg/dl (0.2-1.0); Calcium 8.3 mg/dl (8.6-10.3); Chol HDL Ratio 2.2 (0-5); Creatinine Clr Calc Pharmacy 104.3 ml/min; Globulin 1.6 gm/dl (2.5-4.0); Magnesium 1.8 mg/dl (1.7-2.4); Potassium 4.6 mmol/L (3.5-5.1); Total Protein 4.6 gm/dl (6.0-8.3)
[2024-03-11 06:20] LABS: Hemoglobin 7.5 g/dl (14.0-18.0); Mean Corpuscular Hemoglobin 34.7 pg (25.0-34.0); Mean Corpuscular Hgb Conc 34.1 g/dL (32.0-36.0); Mean Corpuscular Volume 101.9 fL (80.0-100.0); Mean Platelet Volume 10.8 fL (9.4-12.4); Platelet Count 50 K/uL (130-400); RDW Coefficient of Variation 16.7 % (11.5-14.5); RDW Standard Deviation 62.5 fL (36.4-46.3); Red Blood Count 2.16 M/uL (4.70-6.10); White Blood Count 1.72 K/ul (4.8-10.8)
[2024-03-11 06:35] LABS: Basophils # (auto) 0.03 K/uL (0.00-0.20); Basophils % (auto) 1.7 %; Dohle Bodies 1+; Eosinophils % (auto) 5.8 %; Immature Granulocytes # (auto) 0.13 K/uL (0.01-0.20); Immature Granulocytes % (auto) 7.6 %; Lymphocytes # (auto) 0.27 K/uL (1.20-3.40); Lymphocytes % (auto) 15.7 %; Monocytes # (auto) 0.41 K/uL (0.11-0.59); Monocytes % (auto) 23.8 %; Neutrophils # (auto) 0.78 K/uL (1.40-6.50); Neutrophils % (auto) 45.4 %; Toxic Granulation 1+
[2024-03-11 07:30] LABS: Estimated Average Glucose 108 mg/dl; Hemoglobin A1C 5.4 % (4.5-5.6)
[2024-03-11 08:06] VITALS: TEMP 98.1
[2024-03-11] MEDS: CHOLECALCIFEROL 125 MCG (5,000 UNITS) TAB PO SCH (10:15)
[2024-03-11] MEDS: MULTIVITAMIN TAB PO SCH (10:15)
[2024-03-11] MEDS: levoFLOXacin 500 MG TAB PO SCH (10:15)
[2024-03-11] MEDS: SENNA 8.6 MG TAB PO SCH (10:17)
[2024-03-11 12:12] VITALS: BP 100/64; PULSE 61; RESP 20; O2SAT 96
--- NOTE | 2024-03-11 13:04 | XCELERA ---
[id number]
--- NOTE | 2024-03-11 14:15 | Discharge Summary ---
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 Edwards local oncologist, on apixaban as part of clinical trial at [facility] which was stopped recently for thrombocytopenia requiring platelet transfusion 2 days ago presents with left-sided chest pain yesterday #Chest pain Telemetry monitoring did not show any evidence of arrhythmia EKG with no ischemic changes, troponin negative x 3 CTA shows no evidence of PE 2D echo shows normal left ventricular size and systolic function, EF of 65 to 70%, no regional wall motion abnormalities. Moderate concentric left ventricular hypertrophy. Probable PFO with [id number] interatrial shunt. Type I diastolic dysfunction. Trace aortic regurgitation A1c is 5.4 Triglycerides of 54 HDL 52 Cholesterol 112 LDL 49 VLDL 11 Patient advised to get complete cardiac workup with a stress test which could not be done till tomorrow: Patient decided he does not want to stay to get stress test. He is currently chest pain-free and is ambulating without any issues. He is concerned about him being neutropenic and would prefer to do this as outpatient. Patient's has space sciences director Dr. Beltran in mind and she has been provided with information for Dr. Beltran to call and make an appointment to schedule outpatient appointment and discuss further cardiac testing. #Diffuse large B-cell lymphoma #Pancytopenia #Right pulmonary nodules Patient under the care of Dr. Edwards oncologist locally He has finished 6 cycles of chemotherapy at [facility] in [facility] on February 29, 2024 His oncologist at [facility] is Dr. Gerald Weber Patient is in a clinical trial and he is not aware if he is getting placebo or treatment via pill He was on apixaban as part of the clinical trial (not for PE or A-fib) which had to be stopped by his oncology team due to thrombocytopenia requiring platelet transfusion 2 days ago Neutropenic precautions Continue acyclovir and Levaquin for prophylaxis CTA showed right middle lobe pulmonary nodules 2 mm and 3 mm in size: Patient advised to follow-up with oncology as outpatient regarding this Patient's platelet counts have improved. He is scheduled to have repeat platelet count done tomorrow as part of his clinical trial. I have asked him to hold apixaban for now which was advised given to him by [facility] and he will speak with [facility] clinical trial investigators regarding resuming apixaban based on platelet count results tomorrow. Patient also advised to follow up outpatient with his local oncologist Dr. Edwards Patient seen and examined. I have gone over the discharge care plan, medications and follow-up with the patient and his and who is at the bedside in great detail and answered all her questions. 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 Edwards local oncologist, on apixaban as part of clinical trial at [facility] which was stopped recently for thrombocytopenia requiring platelet transfusion 2 days ago presents with left-sided chest pain yesterday Patient states she started with right-sided chest pain 3 days ago while he was trying to climb up a hill. It resolved on rest. No associated shortness of breath. Yesterday patient was out in nature and experienced left-sided chest pain, no radiation, no shortness of breath, no nausea and resolved on its own. Patient's was concerned and hence brought him to the ED today. Patient states he has not had any chest pain today. Denies any fever, chills, cough, shortness of breath, nausea, vomiting, diarrhea, abdominal pain. He tends to get constipated and takes senna and Colace for it. He has intermittent dizziness since he has started chemotherapy. Patient states as part of his clinical trial through [facility], he is also getting a pill and he is not sure if its treatment or placebo In ED, patient had chest x-ray which was negative, CTA which was negative for PE but showed 2 small right middle lobe pulmonary nodules. He had an EKG done which showed normal sinus rhythm at 62 bpm with QTc of 420 and no change from previous EKG from March 2018. Patient was given sublingual nitro even though he did not have any chest pain in ED. He was also given 1 L of normal saline and aspirin 324 mg in the ED. Hospitalist service was called for admission Social history: Patient lives with his . He is independent of ADLs. He drives. Denies tobacco use. He used to drink 2-3 beers a day and has had no alcohol since October 2023 since his diagnosis of lymphoma. He is retired Family history: Patient states his mother at the age of 99 from old age. She had a murmur. Patient states that his father at the age of 94 from congestive heart failure Discharge Exam General: No acute distress Psych: Awake and alert, oriented to place person and time HEENT: Anicteric sclera, moist oral mucosa CVS: Regular rate and rhythm, right-sided Chemo-Port noted Lungs: Bilateral air entry, no wheezing noted Abdomen: Soft, nontender, no rebound, no guarding Ext: Trace lower extremity edema, no calf tenderness Neuro: No focal motor deficits noted, cranial nerves II to XII are grossly intact Discharge Plan Discharge Items Patient Disposition: Home - Self-Care Reason For Visit: CHEST PAIN Discharge Diagnosis: #Chest pain: Resolved #Diffuse large B cell lymphoma #Pancytopenia #Right pulmonary nodules Activity: Resume your previous activity Non-emergency contact: Primary Care Provider Call non-emergency contact if: you have any medication questions, your symptoms worsen and you have a fever Follow-up/Referrals: Misha Beltran MD [Physician] - Evonne Edwards MD [Physician] - Shelby Burgess DO [Primary Care Provider] - Diet: Heart Healthy Addtl Attending Provider Instructions: DISCHARGE INSTRUCTION TO PATIENT/FAMILY: Follow-up with your primary care provider within 1 week regarding: Posthospital discharge, medication review, medication refills and follow-up on all your medical problems Please take all your discharge medications, discharge information and discharge instructions to all your doctors appointments. Avoid all NSAIDs including ibuprofen, Motrin, Advil, Aleve, naproxen, meloxicam, Toradol, diclofenac You are scheduled for blood test tomorrow through [facility] to check your platelet count: Please hold apixaban until platelet count has been checked and speak with [facility] regarding resuming apixaban Labs through PCP in 1 week: CBC, CMP, MG, VITAMIN D You were admitted for chest pain. EKG did not show any evidence of abnormality. Your cardiac enzymes were negative x 3. Please follow-up with cardiology (Dr. Beltran) outpatient to schedule a stress test since you did not want to stay in the hospital to get a stress test. Follow-up with your local oncologist Dr. Edwards in 1 to 2 weeks time Here is the report of the CT angiography of the chest with IV contrast done on 03/10/2024: Please speak with [facility] regarding pulmonary nodules noted on CT scan FINDINGS: Pulmonary arteries: No abnormality noted. No pulmonary embolism. Aorta: No acute change noted. No thoracic aortic aneurysm or dissection. Lungs and pleural spaces: Coarse interstitial markings likely scarring. There is a 5 mm oval noncalcified pleural-based nodule in the left lower lobe at the level of the eighth rib. There are 2 and 3 mm noncalcified right middle lobe pulmonary nodules. No bronchiectasis or honeycombing. No pleural effusion or pneumothorax. Heart: Cardiomegaly. No pericardial effusion. No evidence of RV dysfunction. Bones/joints: Degenerative changes noted throughout the spine. No acute osseous abnormality seen. Soft tissues: No abnormality noted. Lymph nodes: No abnormality noted. No enlarged lymph nodes. Spleen: Visualized portion of the mass in the spleen appears smaller. IMPRESSION: 1. No pulmonary embolus noted. 2. Nonspecific right middle lobe pulmonary nodules. Fleischner Society Guidelines (MacMahon, et al. Radiology 2017; 284(1):228-43) suggest that no follow-up is necessary for patients with a low or high risk of malignancy. Pleural-based nodule left lower lobe requires no further assessment. Echocardiogram report from 03/11/2024 shows the following: Normal left ventricular size and systolic function, ejection fraction 65 to 70%. No regional wall motion abnormalities. Moderate concentric left ventricular hypertrophy. Mild left atrial dilation. Trace aortic regurgitation. Borderline dilated ascending aorta at 4.2 cm. Probable PFO with [id number] interatrial shunt. Normal estimated right ventricular systolic pressure. Type I diastolic dysfunction. Pending Studies at Discharge: No Stand-Alone Forms: My Involver, Smoking Cessation Medications and DC Order Prescriptions: Continued sennosides [Senokot] 8.6 mg Tablet 8.6 mg PO QAM docusate sodium [Colace] 100 mg Capsule 200 mg PO HS gabapentin 300 mg Tablet Extended Release 24 Hr 300 mg PO HS multivitamin Tablet 1 tab PO DAILY acyclovir 400 mg Tablet 400 mg PO BID levofloxacin 500 mg Tablet 500 mg PO DAILY cholecalciferol (vitamin D3) [Vitamin D3] 125 mcg (5,000 unit) Tablet 125 mcg PO DAILY Held Eliquis 2.5 mg tablet 0 mg PO BID Hold Instructions: Resume on 03/13/24. After getting a repeat platelet count checked on 03/12/2024 and speaking with [facility] regarding resuming apixaban as part of clinical trial Rx Instructions: 03/07/24 - Pt's platelet count down to 9, was told to hold medication until it is up to 50 Discharge Orders: Discharge Order (Routine); Ordered 03/11/24 Ordered By: Amaury Brooks Admission Data Admit Date/Time: 03/10/24 15:58 Attending Provider: Amaury Brooks Admit Provider: Amaury Brooks Primary Care Provider: Shelby Burgess Other Providers: Gerald Weber; Evonne Edwards; Musa Mack Hospital Stay Data Consultations 03/10/24 14:15 ED Decision to Admit Stat Diagnostic Imagining Performed 03/10/24 12:45 CT angio chest PE protocol Stat Laboratory Results - last 48 hr 03/10/24 03/10/24 03/10/24 11:46 16:26 22:35 WBC 1.89 L RBC 2.41 L Hgb 8.5 L Hct 24.1 L MCV 100.0 MCH 35.3 H MCHC 35.3 RDW Std Deviation 60.2 H RDW Coeff of Roula 16.2 H Plt Count 40 L MPV 10.8 Immature Gran % (Auto) 1.6 Neut % (Auto) 53.9 Lymph % (Auto) 14.3 Calvert % (Auto) 25.4 Eos % (Auto) 3.7 Baso % (Auto) 1.1 Neut # (Auto) 1.02 L Lymph # (Auto) 0.27 L Calvert # (Auto) 0.48 Eos # (Auto) 0.07 Baso # (Auto) 0.02 Immature Gran # (Auto) 0.03 Hyposegmented Neuts 1+ Toxic Granulation Dohle Bodies Polychromasia 1+ Tear Drop Cells 1+ Ovalocytes 1+ Sodium 138 Potassium 3.9 Chloride 109 H Carbon Dioxide 26 Anion Gap 3 BUN 13 Creatinine 0.61 Est Cr Clr Drug Dosing 118.0 eGFR 103.98 BUN/Creatinine Ratio 21.3 H Glucose 105 H Estimat Average Glucose Hemoglobin A1c Calcium 8.6 Magnesium Total Bilirubin 0.6 AST 10 L ALT 8 Alkaline Phosphatase 60 Troponin I High Sens 8.9 9.9 10.4 Total Protein 5.2 L Albumin 3.5 Globulin 1.7 L Albumin/Globulin Ratio 2.1 H Triglycerides Cholesterol LDL Cholesterol, Calc VLDL Cholesterol, Calc HDL Cholesterol Cholesterol/HDL Ratio Lipase 5 L Vitamin B12 Blood Type Antibody Screen 03/11/24 04:43 WBC 1.72 L RBC 2.16 L Hgb 7.5 L Hct 22.0 L MCV 101.9 H MCH 34.7 H MCHC 34.1 RDW Std Deviation 62.5 H RDW Coeff of Roula 16.7 H Plt Count 50 L MPV 10.8 Immature Gran % (Auto) 7.6 Neut % (Auto) 45.4 Lymph % (Auto) 15.7 Calvert % (Auto) 23.8 Eos % (Auto) 5.8 Baso % (Auto) 1.7 Neut # (Auto) 0.78 L* Lymph # (Auto) 0.27 L Calvert # (Auto) 0.41 Eos # (Auto) 0.10 Baso # (Auto) 0.03 Immature Gran # (Auto) 0.13 Hyposegmented Neuts 1+ Toxic Granulation 1+ Dohle Bodies 1+ Polychromasia Tear Drop Cells Ovalocytes Sodium 140 Potassium 4.6 Chloride 112 H Carbon Dioxide 26 Anion Gap 2 L BUN 14 Creatinine 0.69 Est Cr Clr Drug Dosing 104.3 eGFR 100.18 BUN/Creatinine Ratio 20.3 H Glucose 94 Estimat Average Glucose 108 Hemoglobin A1c 5.4 Calcium 8.3 L Magnesium 1.8 Total Bilirubin 0.4 AST 8 L ALT 7 Alkaline Phosphatase 53 Troponin I High Sens Total Protein 4.6 L Albumin 3.0 L Globulin 1.6 L Albumin/Globulin Ratio 1.9 Triglycerides 54 Cholesterol 112 LDL Cholesterol, Calc 49 VLDL Cholesterol, Calc 11 HDL Cholesterol 52 Cholesterol/HDL Ratio 2.2 Lipase Vitamin B12 > 1500 H Blood Type A Positive Antibody Screen NEGATIVE Chest X-Ray 03/10/24 11:28 XR chest 1V portable CLINICAL HISTORY: Chest pain, nonspecific COMPARISON STUDY: None. FINDINGS: Right internal jugular Mnbjmw-h-Onud is in place. Lung volumes are normal. Lungs are clear. There is no pneumothorax or pleural effusion. Cardiac size is normal. Mediastinal contours are normal. There is no evidence for pulmonary edema. IMPRESSION: No acute cardiopulmonary findings. ACT 112: Negative or not required by law. Electronically signed by: Triston Dao M.D. 03/10/2024 1:21 PM Chest CTA 03/10/24 12:45 EXAM: CT Angiography Chest With Intravenous Contrast INDICATION: Chest pain on exertion. B-cell lymphoma. TECHNIQUE: Axial computed tomographic angiography images of the chest with intravenous contrast. Sagittal and coronal reformatted images were created and reviewed. This CT exam was performed using one or more of the following dose reduction techniques: automated exposure control, adjustment of the mA and/or kV according to patient size, and/or use of iterative reconstruction technique. MIP reconstructed images were created and reviewed. CONTRAST: 65ml of Optiray 320 was administered intravenously. COMPARISON: Limited comparison to upper abdominal CT performed during lymph node biopsy. FINDINGS: Pulmonary arteries: No abnormality noted. No pulmonary embolism. Aorta: No acute change noted. No thoracic aortic aneurysm or dissection. Lungs and pleural spaces: Coarse interstitial markings likely scarring. There is a 5 mm oval noncalcified pleural-based nodule in the left lower lobe at the level of the eighth rib. There are 2 and 3 mm noncalcified right middle lobe pulmonary nodules. No bronchiectasis or honeycombing. No pleural effusion or pneumothorax. Heart: Cardiomegaly. No pericardial effusion. No evidence of RV dysfunction. Bones/joints: Degenerative changes noted throughout the spine. No acute osseous abnormality seen. Soft tissues: No abnormality noted. Lymph nodes: No abnormality noted. No enlarged lymph nodes. Spleen: Visualized portion of the mass in the spleen appears smaller. IMPRESSION: 1. No pulmonary embolus noted. 2. Nonspecific right middle lobe pulmonary nodules. Fleischner Society Guidelines (MacMahon, et al. Radiology 2017; 284(1):228-43) suggest that no follow-up is necessary for patients with a low or high risk of malignancy. Pleural-based nodule left lower lobe requires no further assessment. ACT 112: Negative or not required by law. Electronically signed by Luanne Shetty 03-10-2024 2:12 PM Pending Results Patient Have Any Pending Studies at Discharge: No Discharge Instructions Given to Patient (Per Discharging Provider) DISCHARGE INSTRUCTION TO PATIENT/FAMILY: Follow-up with your primary care provider within 1 week regarding: Posthospital discharge, medication review, medication refills and follow-up on all your medical problems Please take all your discharge medications, discharge information and discharge instructions to all your doctors appointments. Avoid all NSAIDs including ibuprofen, Motrin, Advil, Aleve, naproxen, meloxicam, Toradol, diclofenac You are scheduled for blood test tomorrow through [facility] to check your platelet count: Please hold apixaban until platelet count has been checked and speak with [facility] regarding resuming apixaban Labs through PCP in 1 week: CBC, CMP, MG, VITAMIN D You were admitted for chest pain. EKG did not show any evidence of abnormality. Your cardiac enzymes were negative x 3. Please follow-up with cardiology (Dr. Beltran) outpatient to schedule a stress test since you did not want to stay in the hospital to get a stress test. Follow-up with your local oncologist Dr. Edwards in 1 to 2 weeks time Here is the report of the CT angiography of the chest with IV contrast done on 03/10/2024: Please speak with [facility] regarding pulmonary nodules noted on CT scan FINDINGS: Pulmonary arteries: No abnormality noted. No pulmonary embolism. Aorta: No acute change noted. No thoracic aortic aneurysm or dissection. Lungs and pleural spaces: Coarse interstitial markings likely scarring. There is a 5 mm oval noncalcified pleural-based nodule in the left lower lobe at the level of the eighth rib. There are 2 and 3 mm noncalcified right middle lobe pulmonary nodules. No bronchiectasis or honeycombing. No pleural effusion or pneumothorax. Heart: Cardiomegaly. No pericardial effusion. No evidence of RV dysfunction. Bones/joints: Degenerative changes noted throughout the spine. No acute osseous abnormality seen. Soft tissues: No abnormality noted. Lymph nodes: No abnormality noted. No enlarged lymph nodes. Spleen: Visualized portion of the mass in the spleen appears smaller. IMPRESSION: 1. No pulmonary embolus noted. 2. Nonspecific right middle lobe pulmonary nodules. Fleischner Society Guidelines (MacMahon, et al. Radiology 2017; 284(1):228-43) suggest that no follow-up is necessary for patients with a low or high risk of malignancy. Pleural-based nodule left lower lobe requires no further assessment. Echocardiogram report from 03/11/2024 shows the following: Normal left ventricular size and systolic function, ejection fraction 65 to 70%. No regional wall motion abnormalities. Moderate concentric left ventricular hypertrophy. Mild left atrial dilation. Trace aortic regurgitation. Borderline dilated ascending aorta at 4.2 cm. Probable PFO with [id number] interatrial shunt. Normal estimated right ventricular systolic pressure. Type I diastolic dysfunction. Total Time Total Time Spent Total Time Spent (In Minutes): 40 minutes Coding Level of Care Code 67923 INP/OBS DISCH >30 MIN Diagnoses Chest pain R07.9 Lymphoma C85.90 Lymphoma type: unspecified type Pancytopenia D61.818
--- NOTE | 2024-03-12 05:54 | Electrocardiogram Report ---
Test Reason : Blood Pressure : */* mmHG Vent. Rate : 62 BPM Atrial Rate : 62 BPM P-R Int : 196 ms QRS Dur : 86 ms QT Int : 414 ms P-R-T Axes : 33 -16 43 degrees QTcB Int : 420 ms Normal sinus rhythm Possible Anterior infarct , age undetermined Abnormal ECG When compared with ECG of 27-Apr-2018 09:14, No significant change was found Confirmed by Feliberto Cadena ([id number]) on 03/12/2024 5:53:51 AM Referred By: REFERRED SELF Confirmed By: Feliberto Cadena
--- NOTE | 2024-03-12 05:54 | Electrocardiogram Report ---
Test Reason : Blood Pressure : */* mmHG Vent. Rate : 60 BPM Atrial Rate : 60 BPM P-R Int : 202 ms QRS Dur : 88 ms QT Int : 454 ms P-R-T Axes : 34 -1 25 degrees QTcB Int : 454 ms Normal sinus rhythm Normal ECG When compared with ECG of 10-Mar-2024 11:26, Borderline criteria for Anterior infarct are no longer Present Confirmed by Feliberto Cadena ([id number]) on 03/12/2024 5:54:10 AM Referred By: REFERRED SELF Confirmed By: Feliberto Cadena
== END 2024-03-11 15:05 | disposition home or self-care (01) ==
LOC: SUATTDRO → ED 11:09 → 2W 11:09